=== PATIENT | male | born 1945 | race Caucasian/White ===

== ENCOUNTER 2017-04-07 09:15 | Observation (INO) | payer OTHER ==
--- NOTE | 2017-04-05 16:39 | Diagnostic Imaging Report ---
PROCEDURE: Frontal and lateral views of the chest. COMPARISON: None. INDICATIONS: pre-op neck FINDINGS: Lines/tubes: Left-sided portacatheter with tip at the atriocaval junction.. Lungs: The right lung is well inflated and clear. Moderate left pleural effusion with mediastinal shift to the left with associated atelectasis. There is however additional air space opacities in the left lung. 7.4 cm left hilar mass like region. Pleura: Moderate left pleural effusion. Heart and mediastinum: The heart and the mediastinum are normal. Bones: No acute bony abnormality. Moderate degenerative changes in the thoracic spine. IMPRESSION: 1. Moderate left pleural effusion with associated left lung atelectasis. 2. 7.4 cm questionable left hilar mass with additional left midlung air space opacities, possibly post obstructive pneumonia versus masses. Dictated by: Manish Kang M.D. on 04/05/2017 at 16:39 Electronically approved by: Manish Kang M.D. on 04/05/2017 at 16:39
[2017-04-05 17:07] LABS: BASOPHILS % 0.4 % (0.0-1.0); EOSINOPHILS % 0.2 % (0.0-6.0); HEMATOCRIT 36.8 % (38.2-49.6); HEMOGLOBIN 11.6 g/dL (14.0-18.0); LYMPHOCYTES # (AUTO) 1.3 (1.0-3.2); LYMPHOCYTES % 11.9 % (18.0-39.1); MEAN CORPUSCULAR HEMOGLOBIN 28.6 pg (28-32); MEAN CORPUSCULAR HGB CONC 31.5 g/dL (31-35); MEAN CORPUSCULAR VOLUME 90.9 fL (81-99); MONOCYTES # (AUTO) 0.9 (0.2-0.8); MONOCYTES % 8.2 % (4.4-11.3); NEUTROPHILS # (AUTO) 8.3 (2.1-6.9); NEUTROPHILS % 75.3 % (38.7-80.0); PLATELET COUNT 203 x10e3/uL (140-360); RED BLOOD COUNT 4.05 x10e6/uL (4.3-5.7); RED CELL DISTRIBUTION WIDTH 20.2 % (11.7-14.4)
[2017-04-05 17:19] LABS: INR 1.27; PARTIAL THROMBOPLASTIN TIME 28.1 seconds (23.8-35.5); PROTHROMBIN TIME 14.9 seconds (11.9-14.5)
[2017-04-05 17:24] LABS: ANION GAP 18.2 mmol/L (8-16); BLOOD UREA NITROGEN 19 mg/dL (7-26); BUN/CREATININE RATIO 19 (6-25); CALCIUM 9.6 mg/dL (8.4-10.2); CARBON DIOXIDE 23 mmol/L (22-29); CHLORIDE 101 mmol/L (98-107); CREATININE, SERUM 1.01 mg/dL (0.72-1.25); EST GLOMERULAR FILTRATION RATE > 60 ML/MIN (60-); GLUCOSE 82 mg/dL (74-118); POTASSIUM 4.2 mmol/L (3.5-5.1); SODIUM 138 mmol/L (136-145)
[2017-04-05 17:45] LABS: BAND NEUTROPHILS % (MANUAL) 1 %; EOSINOPHILS % (MANUAL) 1 % (0-7); LYMPHOCYTES % (MANUAL) 17 % (19-48); MONOCYTES % (MANUAL) 3 % (3.4-9.0); NEUTROPHILS % (MANUAL) 78 % (40-74); PLATELET ESTIMATE ADEQUATE; POLYCHROMASIA FEW; RBC MORPHOLOGY COMMENT NORMAL
[~2017-04-07] VITALS: Ht 172.7 cm; Wt 77.1 kg
[~2017-04-07 09:15] MED LIST: ACETAMINOPHEN 1000 MG/100 ML 100 ML IV ONE; BACITRACIN 50,000 UNIT VIAL ONE; CENTRUM SILVER1 EAC3 PO; FERROUS SULFAT325 MG PO; GELATIN SPONGE SZ 100 ONE; LIDOCAINE HCL (LTA) 4 ML SOLN ONE; LYRICA75 MG PO; METOPROLOL SUCC25 MG PO; NORCO 5-325 TA1 EACH PO; THROMBIN FOR SOLN 5,000 UNIT VIAL ONE
--- OUTSIDE RECORDS SUMMARY | 2017-04-07 09:17 | XMS REPORT ---
Author Author [facility] Address Unknown Phone Unavailable Care Team Providers Care Position Classification Manager Name Role Phone SAMY FRY Unavailable Unavailable Problems This patient has no known problems. Allergies, Adverse Reactions, Alerts This patient has no known allergies or adverse reactions. Medications This patient has no known medications. Results Test Description Test Time Test Comments Text Results Atomic Results Result Comments CHEST 2 VIEWS [place] [address] Patient Name: MARTIN TAYLOR MR #: [id number] : 1945 Age/Sex: 71/M Req #: [id number] Adm Physician: Ordered by: SAMY FRY MD Report #: [id number] Location: OR Room/Bed: Procedure: [id number] DX/CHEST 2 VIEWS Exam Date: 04/05/17 Exam Time: 1625 REPORT STATUS: Signed PROCEDURE: Frontal and lateral views of the chest. COMPARISON: None. INDICATIONS: pre-op neck FINDINGS: Lines/tubes: Left-sided portacatheter with tip at the atriocaval junction.. Lungs: The right lung is well inflated and clear. Moderate left pleural effusion with mediastinal shift to the left with associated atelectasis. There is however additional air space opacities in the left lung. 7.4 cm left hilar mass like region. Pleura: Moderate left pleural effusion. Heart and mediastinum: The heart and the mediastinum are normal. Bones: No acute bony abnormality. Moderate degenerative changes in the thoracic spine. IMPRESSION: 1. Moderate left pleural effusion with associated left lung atelectasis. 2. 7.4 cm questionable left hilar mass with additional left midlung air space opacities, possibly post obstructive pneumonia versus masses. Dictated by : Dalila Kang M.D. on 04/05/2017 at 16:39 Electronically approved by: Dalila Kang M.D. on 04/05/2017 at 16:39 Dictated By: DALILA KANG MD 1639 Transcribed By: CHRISTIAN on 04/05/17 1639 COPY TO: SAMY FRY MD
[2017-04-07] MEDS ORDERED: CEFAZOLIN SOD 1 GM VIAL ONE (10:03)
[2017-04-07] MEDS ORDERED: HEPARIN SOD/SOD CHLORIDE 1,000 ML ONE (10:05)
[2017-04-07] MEDS ORDERED: DEXAMETHASONE SOD PHOS 10 MG/1 ML VIAL ONE (12:14)
[2017-04-07] MEDS: LACTATED RINGER'S 1,000 ML IV SCH ×2 (12:57→21:17)
[2017-04-07] MEDS ORDERED: PREGABALIN 75 MG CAP PO PRN (13:00)
[2017-04-07] MEDS ORDERED: CEPACOL SORE THROAT LOZENGES PO PRN (13:00)
[2017-04-07] MEDS ORDERED: CARISOPRODOL 350 MG TAB PO PRN (13:00)
[2017-04-07] MEDS ORDERED: PROMETHAZINE HCL (IM) 25 MG/ML VIAL IM PRN (13:00)
[2017-04-07] MEDS ORDERED: MORPHINE SULFATE 5 MG/ML VIAL IM PRN (13:00)
[2017-04-07] MEDS ORDERED: MAGNESIUM/ALUMINUM/SIMETHICONE 30 ML UDC PO PRN (13:00)
[2017-04-07] MEDS ORDERED: ACETAMINOPHEN 325 MG TAB PO PRN (13:00)
[2017-04-07] MEDS ORDERED: OXYCODONE/ACETAMINOPHEN 5-325 1 EACH TABLET PO PRN (13:00)
[2017-04-07] MEDS ORDERED: CEFAZOLIN SOD 1 GM/NS 50ML 50 ML IV SCH (14:00)
[2017-04-07] MEDS ORDERED: MIDAZOLAM HCL 2 MG/2 ML VIAL ONE (14:11)
[2017-04-07] MEDS ORDERED: FENTANYL CITRATE/PF 100MCG/2 ML INJ ONE (14:11)
[2017-04-07] MEDS ORDERED: PROPOFOL IV EMULSION 10 MG/ML 20 ML VIAL ONE (14:19)
[2017-04-07] MEDS ORDERED: ROCURONIUM BROMIDE 10 MG/ML 5ML VIAL ONE (14:19)
[2017-04-07] MEDS ORDERED: GLYCOPYRROLATE INJ 1MG/ 5 ML SYR ONE (14:19)
[2017-04-07] MEDS ORDERED: NEOSTIGMINE 5 MG/5ML SYR ONE (14:19)
[2017-04-07] MEDS ORDERED: ONDANSETRON HCL INJ 2 MG/ML VIAL ONE (14:19)
[2017-04-07] MEDS ORDERED: LIDOCAINE HCL 2% LOCAL INJ 5 ML SDV VIAL INJ ONE (14:19)
[2017-04-07] MEDS ORDERED: SEVOFLURANE INHAL SOLN 250 ML PEN BTL ONE (14:19)
--- NOTE | 2017-04-07 14:21 | Operative Report ---
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 PROCEDURES 1. C5-6 anterior cervical diskectomy, microsurgical osteophyte resection, and allograft fusion, 42768. 2. Preparation of MTF cortical cancellous allograft, 63054. 3. C5-6 anterior cervical plating with Synthes ZPN plate, 11272. ANESTHESIA: General. INDICATIONS: The patient is a man who presents with severe right C7 radiculopathy and was taken to the operating room for C6-7 anterior cervical decompression and fusion. DESCRIPTION OF PROCEDURE: After the induction of general anesthesia, the patient was placed on the operating table in the supine position. The right side of the neck was prepped and draped in a sterile fashion. The fluoroscopic C-arm was positioned in cross-table lateral orientation. A transverse incision was created on the right side of the neck superimposed on the C6-7 disk space as determined by fluoroscopy. The platysma was divided in line with the incision. A subplatysmal dissection was carried out. An avascular plane of dissection was developed medial to the sternocleidomastoid muscle and was followed medial to the carotid sheath to the anterior border of the cervical spine. The deep cervical fascia was opened. The esophagus was retracted to the left. The attachments of the longus coli muscles to the anterolateral aspects of the C6 and C7 vertebral bodies were divided. The anterior longitudinal ligament was resected. A large anterior osteophyte was resected. [place] posts were inserted into C6 and C7. The [place] distractor was used to distract the disk space. The contents of the disk were thoroughly evacuated with angled curets and pituitary rongeurs. The large posterior osteophytes were meticulously drilled with a 2-mm cutting bur on a high-speed drill until they were completely removed. The posterior annulus of the disk, chronically herniated disk material, and the posterior longitudinal ligament were resected layer by layer until the dura was fully exposed and decompressed. The medial aspects of the uncinate processes were resected bilaterally, to further expose and decompress the origins of the corresponding C7 nerve root. After a satisfactory decompression had been achieved, the endplates were prepared for fusion. A piece of MTF cortical cancellous allograft measuring 8 mm in size was selected, prepared in saline and loaded onto a Synthes ZPN plate. The constructed was inserted into the C6-7 disk space under distraction and fluoroscopic guidance. The distraction was released, and the distraction posts were removed. The plate was then screwed to the end plates of C6 and C7 with 2 pairs of 16-mm screws. All screws were locked, and an excellent construct was obtained. The wound was copiously irrigated with Bacitracin solution and closed in multiple layers with 3-0 Vicryl sutures and 4-0 Monocryl sutures. A dressing was applied. The patient was awakened, extubated, and taken to the postanesthesia care unit in stable condition. No intraoperative complications were encountered. Estimated blood loss was 10 mL. Job#: [id number]
[2017-04-07 14:42] VITALS: BP 149/80
[2017-04-07 15:50] VITALS: BP 149/80
[2017-04-07] MEDS ORDERED: BUPIVACAINE 0.5%/EPI 30 ML SDV INJ ONE (16:14)
[2017-04-07 16:40] VITALS: BP 137/63
[2017-04-07 18:30] VITALS: BP 137/63
[2017-04-07] MEDS: CEFAZOLIN SOD 1 GM VIAL IV SCH (20:00)
[2017-04-07 20:36] VITALS: BP 140/66
[2017-04-07] MEDS ORDERED: METOPROLOL SUCCINATE 25 MG TAB XL PO SCH (21:00)
[2017-04-07] MEDS: HYDROMORPHONE 2MG/ML INJ IV PRN (23:06)
[2017-04-07] MEDS: ONDANSETRON HCL INJ 2 MG/ML VIAL IV PRN (23:07)
[2017-04-08 00:33] VITALS: BP 128/58
[2017-04-08 01:08] VITALS: BP 128/58
[2017-04-08] MEDS: CEFAZOLIN SOD 1 GM VIAL IV SCH ×2 (04:20→09:14)
[2017-04-08 04:56] VITALS: BP 142/64
[2017-04-08] MEDS: LACTATED RINGER'S 1,000 ML IV SCH (05:21)
[2017-04-08] MEDS: ONDANSETRON HCL INJ 2 MG/ML VIAL IV PRN (05:23)
[2017-04-08] MEDS: HYDROMORPHONE 2MG/ML INJ IV PRN (05:23)
[2017-04-08 08:00] VITALS: BP 132/65
[2017-04-08] MEDS ORDERED: NORCO 7.5-3251 EACH PO (08:06)
--- NOTE | 2017-04-08 08:17 | Diagnostic Imaging Report ---
PROCEDURE: X-RAY CERVICAL SPINE, TWO VIEWS COMPARISON: None. INDICATIONS: POST OP FOLLOW UP FINDINGS: C1 through C7 are visualized on the lateral view. Mild reversal of the cervical lordosis may be related muscle spasm or positioning. The patient is status post anterior fusion of C6-C7 with a disc spacer and oblique fixating screws which are intact and in adequate alignment. Mild prevertebral soft tissue swelling is present. Degenerative spurring at C2-C6 is present. Mild disc space narrowing at C5-C6 is also noted. Incidental notice is made of a chest port and partially visualized subclavian catheter CONCLUSION: Status post anterior fusion of C6-C7 with intact hardware with adequate alignment. Fabio Darnell D.O. Dictated by: Fabio Darnell D.O. on 04/08/2017 at 8:18 Electronically approved by: Fabio Darnell D.O. on 04/08/2017 at 8:18
[2017-04-08] MEDS ORDERED: MU VITS MIN TH PO SCH (09:00)
[2017-04-08] MEDS ORDERED: LUTEIN PO SCH (09:00)
[2017-04-08] MEDS ORDERED: FERROUS SULFATE 325 MG TAB PO SCH (09:00)
[2017-04-08] MEDS ORDERED: LYCOPENE PO SCH (09:00)
== END 2017-04-08 09:15 | disposition home or self-care (01) ==
LOC: OR 09:15 → IMCU 13:29
PROVIDERS: ADMIT Neurological Surgery; ATTEND Neurological Surgery
DX: M50.123 Cervical disc disorder at C6-C7 level with radiculopathy (principal); I10 Essential (primary) hypertension; Z85.118 Personal history of other malignant neoplasm of bronchus and lung
CPT/HCPCS: 20931; 22551; 22845; 36415; 71046; 72040; 77003; 80048; 85025; 85610; 85730; 86850; 86900; 88304; 93005; C1713; G0378 ×2; J0690 ×2; J1100; J1170 ×2; J2001; J2250; J2405 ×2; J2270